=== PATIENT | female | born 1960 | race African-American/Black ===

== ENCOUNTER 2016-09-30 10:37 | Emergency (ER) | payer OTHER ==
[~2016-09-30] VITALS: Ht 149.9 cm; Wt 75.9 kg
[2016-09-30 10:41] VITALS: BP 151/110; PULSE 84; RESP 16; O2SAT 100
--- NOTE | 2016-09-30 11:04 | ED.REPORT ---
HPI-General Illness Date of Service Sep 30, 2016 ED Provider: Orlando Calzada MD The patient is a 56 year old female who presents to the emergency department complaining of a elevated blood pressure that was noticed this morning. 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 She does not have a primary care provider in the area. She was previously on hydrochlorothiazide and lisinopril. She has not history diabetes mellitus and has been on medication in the past. She is a former tobacco smoker. She also mentions increased stress. She is currently homeless and living at the [facility]. She denies fever, chills, chest pain, shortness of breath, cough, nausea, vomiting, diarrhea or headache. Nursing Notes Stated Complaint: HIGH BLOOD PRESSURE Chief Complaint: General Complaint Nursing Notes Reviewed: Yes General Time Seen by MD: 11:03 Chief Complaint Other (elevated blood pressure) Hx Obtained From: Patient Arrived By: Walk-in Sudden in Onset?: No Onset Occurred: Onset unknown Symptom Duration: Since onset Severity: Current: No pain currently Severity: Maximum: No pain Recent Healthcare: No recent hospitalization, Recent doctor visit Similar Sx Previous: No Past Medical History Past Medical History Reports: Diabetes mellitus, Hypertension Family History Noncontributory Smoking History Former Smoker Social History Alcohol Use: Denies alcohol use Drug Use: Denies drug use Other Social History: Lives with children, Local resident, Homeless Ambulatory Status Independent Review of Systems +high blood pressure Full Review of Systems Constitutional: Denies: Chills, Fever Respiratory: Denies: Non-productive cough, Shortness of breath Cardiovascular: Denies: Chest pain GI: Denies: Abdominal pain, Diarrhea, Nausea, Vomiting Neurologic: Denies: Headache Psychiatric: Reports: Stress Complete sys rev & neg: except as marked. Physical Exam Vital Signs Vital Signs Date Time Temp Pulse Resp B/P Pulse Ox O2 Delivery O2 Flow Rate FiO2 09/30/16 10:41 36.4 84 16 151/110 100 Initial VS: Reviewed Head / Eyes: Atraumatic, Normocephalic, PERRL ENT: Mucous membranes moist, Conjunctiva normal, No scleral icterus Neck: Supple, Non-tender, Full range of motion Respiratory: Breath sounds normal, Clear to auscultation, No respiratory distress Cardiovascular: Regular rate & rhythm, Heart sounds normal, Intact distal pulses Abdomen / GI: Soft, Non-tender, No guarding, No rebound, No distention Extremities: Vascular intact, Neuro intact, No swelling, No tenderness Skin: Warm, Dry, No cyanosis Neurologic: Alert, Oriented, Nonfocal Psychiatric: Mood/affect normal, Behavior normal, Normal thought content General/Constitutional: Awake, Alert, Cooperative Re-Eval/Medical Decision Source of Hx: Old records Time of Eval: 11:19 Re-Evaluation/Progress Note: Discussed plan for social work consult and discharge. Consultation : Consulted With: workers' compensation claims supervisor Call Returned at: 11:26 Note: ED social worker clinical will provide the patient with resources. Counseled Regarding: Diagnosis, Need for follow-up, When/why to return to ED Discharge & Departure Primary Impression: Elevated blood pressure Additional Impressions: History of diabetes mellitus History of hypertension Disposition: Home Discharge Condition All VS Reviewed: Yes Condition: Stable Patient Instructions: Chronic Hypertension (ED), Diabetes Mellitus Type 2 in Adults (ED) Additional Instructions: Thank you for entrusting us with your care today. I have written you a prescription for Glucophage for your diabetes, and lisinopril and hydrochlorothiazide for your blood pressure. Please followup with a primary care provider for further management of this. We have given you a referral to Dr. Kelly. Call today to schedule an appointment. Please return to the emergency department for any new or concerning symptoms. Referrals: Madiha Kelly MD Attestation Portions of this note were transcribed by Leyda Reaves. I, Dr. Calzada personally performed the history, physical exam and medical decision-making; I reviewed and confirmed the accuracy of the information in the transcribed note. Signed by: Nydia Benitez, 09/30/2016 at 1145. copies to: Madiha Kelly MD, Kirk H MD Sep 30, 2016 11:04 Leyda Reaves Sep 30, 2016 11:16
[2016-09-30] MEDS ORDERED: LISI1TAB7 PO (11:52)
[2016-09-30] MEDS ORDERED: METF500T PO (11:52)
[2016-09-30 12:12] VITALS: BP 230/115; RESP 16; O2SAT 84
== END 2016-09-30 12:10 | disposition home or self-care (01) ==
LOC: SED 10:37
DX: I10 Essential (primary) hypertension (principal); E11.9 Type 2 diabetes mellitus without complications; Z87.891 Personal history of nicotine dependence; Z59.0 Homelessness
CPT/HCPCS: 99283; G0463